=== PATIENT | female | born 1990 | race Caucasian/White ===

== ENCOUNTER 2016-12-01 10:52 | Emergency (ER) | payer OTHER ==
[~2016-12-01] VITALS: Ht 167.6 cm; Wt 59.0 kg
[2016-12-01 12:01] VITALS: BP 129/95
--- NOTE | 2016-12-01 15:09 | NUR ---
PATIENT PRESENTS TO ED WITH C/O INTERMITTENT LOWER ABDOMINAL PAIN X 4 DAYS. . PT STATES SHE 'S NOT BEEN EATING FOR AFEW DAYS;PT ALSO STATES SHE FEELS NAUSEOUS BUT DENIES V/D; SKIN IS PINK/WARM/DRY; AAOX4 WITH EVEN AND STEADY GAIT; LUNGS CLEAR BL; HR EVEN AND REGULAR; PT DENIES ANY FEVER, CP, SOB, OR COUGH AT THIS TIME; PATIENT STATES PAIN OF 7/10 AT THIS TIME;PATIENT POSITIONED FOR COMFORT; HOB ELEVATED; BEDRAILS UP X2; BED DOWN. ER MD MADE AWARE OF PT STATUS.
[2016-12-01] MEDS ORDERED: LORazepam 1 MG TAB PO ONE (15:30)
--- NOTE | 2016-12-01 15:34 | NUR ---
MAGDALENA OLVERA EVALUATING PT.
[2016-12-01 15:47] VITALS: BP 124/92
--- NOTE | 2016-12-01 15:47 | NUR ---
Patient discharged with v/s stable. Written and verbal after care instructions given and explained. Patient alert, oriented and verbalized understanding of instructions. Ambulatory with steady gait. All questions addressed prior to discharge. ID band removed. Patient advised to follow up with PMD. Rx of MAGNESIUM CITRATE AND MAALOX given. Patient educated on indication of medication including possible reaction and side effects. Opportunity to ask questions provided and answered. Addendum: 12/01/16 at 1603 by [facility] Patient discharged with v/s stable. Written and verbal after care instructions given and explained. Patient alert, oriented and verbalized understanding of instructions. Ambulatory with steady gait. All questions addressed prior to discharge. ID band removed. Patient advised to follow up with PMD. Rx of XANAX given. Patient educated on indication of medication including possible reaction and side effects. Opportunity to ask questions provided and answered.
== END 2016-12-01 15:47 | disposition home or self-care (01) ==
LOC: MED 10:52
DX: R10.9 Unspecified abdominal pain (principal); R63.0 Anorexia; R03.0 Elevated blood-pressure reading, without diagnosis of hypertension
CPT/HCPCS: 81002; 81025; 99283

== ENCOUNTER 2018-01-13 19:58 | Emergency (ER) | payer OTHER ==
[~2018-01-13] VITALS: Ht 165.1 cm; Wt 50.6 kg
[2018-01-13 20:00] VITALS: BP 140/98
[2018-01-13] MEDS ORDERED: NACL 0.9% 1,000 ML IV SCH (21:04)
[2018-01-13 21:38] LABS: BASOPHILS # (AUTO) 0.1 K/uL (0.00-0.22); BASOPHILS % (AUTO) 0.7 % (0.0-2.0); EOSINOPHILS # (AUTO) 0.1 K/uL (0-0.4); HEMATOCRIT 43.4 % (36-48); HEMOGLOBIN 14.5 g/dL (12.0-16.0); LYMPHOCYTES # (AUTO) 1.8 K/uL (2.5-16.5); LYMPHOCYTES % (AUTO) 23.8 % (20.5-51.1); MEAN CORPUSCULAR HEMOGLOBIN 30 pg (27-31); MEAN CORPUSCULAR HGB CONC 33 g/dL (33-37); MEAN CORPUSCULAR VOLUME 88.8 fL (80-94); MONOCYTES # (AUTO) 0.4 K/uL (0.8-1.0); NEUTROPHILS # (AUTO) 5.1 K/uL (1.8-7.7); NEUTROPHILS % (AUTO) 68.5 % (42.2-75.2); PLATELET COUNT (AUTO) 252 K/uL (140-450); RED BLOOD CELL COUNT(AUTO) 4.89 MIL/uL (4.20-5.40); RED CELL DISTRIBUTION WIDTH 12.9 % (11.6-13.7); WHITE BLOOD COUNT (AUTO) 7.5 K/uL (4.8-10.8)
[2018-01-13 22:00] LABS: BARBITURATE, URINE NEG. ng/ml (NEG <=200); BENZODIAZEPINE, URINE POS. ng/mL (NEG <=200); CANNABINOID, URINE NEG. ng/mL (NEG <=50); COCAINE, URINE NEG. ng/mL (NEG <=300); OPIATE, URINE NEG. ng/mL (NEG <=2000); PHENCYCLIDINE SCREEN,URINE NEG. ng/mL (NEG <=25)
[2018-01-13 22:11] LABS: APPEARANCE,URINE TURBID (CLEAR); BLOOD, URINE NEGATIVE (NEGATIVE); COLOR,URINE YELLOW (YELLOW); UGLUCOSE NEGATIVE (NEGATIVE)
[2018-01-13 22:12] LABS: BILIRUBIN,URINE NEGATIVE (NEGATIVE); LEUKOCYTE ESTERASE ,URINE NEGATIVE (NEGATIVE); NITRITE, URINE NEGATIVE (NEGATIVE)
[2018-01-13 22:14] LABS: RBC,URINE 0-5 (RARE) /HPF (0-5); WBC,URINE 0-5 (RARE) /HPF (0-5)
[2018-01-13 22:15] LABS: URINE AMORPHOUS URATE 1+ /HPF (None Seen)
[2018-01-13] MEDS ORDERED: KETOROLAC 15 MG/ML VIAL IVP ONE (22:25)
[2018-01-13 22:26] LABS: ANION GAP 15.8 (8-16); CARBON DIOXIDE 27.3 mmol/L (21-32); CHLORIDE 102 mmol/L (98-107); CREATININE 0.6 mg/dL (0.6-1.3); GFR ARICAN-AMERICAN 155 mL/min (>90); GLUCOSE 84 mg/dL (74-106); POTASSIUM 3.1 mmol/L (3.5-5.1); SODIUM SERUM 142 mmol/L (136-145); UREA NITROGEN, BLOOD 9 mg/dL (7-18)
[2018-01-13 22:38] LABS: ALBUMIN 4.3 g/dL (3.4-5.0); AMYLASE 52 U/L (25-115); ASPARTATE AMINOTRANSFERASE 8 U/L (15-37); LIPASE 101 U/L (73-393); THYROID STIMULATING HORMONE 1.75 uIU/mL (0.34-3.74); TOTAL BILIRUBIN 2.1 mg/dL (0.0-1.0)
[2018-01-13 22:39] LABS: ACETAMINOPHEN < 0.5 ug/ml (10-30); SALICYLATE < 2.8 mg/dL (2.8-20.0)
[2018-01-13] MEDS ORDERED: POTASSIUM CHLORIDE 20% 40 MEQ/15 ML UDC PO ONE (23:35)
[2018-01-14] MEDS ORDERED: LORazepam 2 MG/ML VIAL IVP ONE ×2 (00:10→00:15)
[2018-01-14 01:32] VITALS: BP 114/62
== END 2018-01-14 01:32 | disposition home or self-care (01) ==
LOC: MED 19:58
DX: F41.9 Anxiety disorder, unspecified (principal); K58.9 Irritable bowel syndrome, unspecified
CPT/HCPCS: 36415; 80053; 80305; 81001; 81025; 82150; 83690; 83735; 84443; 84484; 84703; 85025; 87086; 93005; 96361; 96374; 96375; 96376; 99285; G0480; G0482; J1885; J2060; J7030

== ENCOUNTER 2018-07-07 19:34 | Emergency (ER) | payer OTHER ==
[~2018-07-07] VITALS: Ht 167.6 cm; Wt 47.6 kg
[2018-07-07 19:39] VITALS: BP 141/80
--- NOTE | 2018-07-07 19:43 | NUR ---
TO LOBBY A/W BED, GILDA CARVER NOTED
--- NOTE | 2018-07-07 20:15 | NUR ---
PT AMBULATED TO ER BED 3 AT THIS TIME
--- NOTE | 2018-07-07 20:18 | NUR ---
28 Y FEMALE C/O NUMBNESS ON HER RT SIDE BODY WITH TINGLING, PAIN ON HER RT SHOULDER STARTED AT 1700 HOUR, WHILE AT WORK , NO TRAUMA NOR INJURY. PAIN 9/10 ACHING. PT STATES THE NUMBNESS AND PAIN RADIATES DOWN ENTIRE RT SIDE. -ROM WITH RT ARM DUE TO PAIN. VSS AT THIS TIME. BED IS DOWN, LOCKED, BED RAIL X 1, ERMD NOTIFIED. PMH-NONE
--- NOTE | 2018-07-07 20:18 | NUR ---
ASSESSMENT COMPLETED BY SINDY ARTEAGA
--- NOTE | 2018-07-07 20:38 | NUR ---
IDA NORWOOD WITH PATIENT
[2018-07-07] MEDS ORDERED: LORazepam 0.5 MG TAB PO ONE (20:55)
[2018-07-07 21:06] LABS: BASOPHILS # (AUTO) 0.1 K/uL (0.00-0.22); BASOPHILS % (AUTO) 0.8 % (0.0-2.0); EOSINOPHILS # (AUTO) 0.1 K/uL (0-0.4); EOSINOPHILS % (AUTO) 1.6 % (0.0-4.0); HEMATOCRIT 39.7 % (36-48); HEMOGLOBIN 13.6 g/dL (12.0-16.0); LYMPHOCYTES # (AUTO) 1.6 K/uL (2.5-16.5); LYMPHOCYTES % (AUTO) 23.8 % (20.5-51.1); MEAN CORPUSCULAR HEMOGLOBIN 30 pg (27-31); MEAN CORPUSCULAR HGB CONC 34 g/dL (33-37); MEAN CORPUSCULAR VOLUME 88.1 fL (80-94); MONOCYTES # (AUTO) 0.4 K/uL (0.8-1.0); MONOCYTES % (AUTO) 5.8 % (1.7-9.3); NEUTROPHILS # (AUTO) 4.7 K/uL (1.8-7.7); PLATELET COUNT (AUTO) 286 K/uL (140-450); RED BLOOD CELL COUNT(AUTO) 4.51 MIL/uL (4.20-5.40); RED CELL DISTRIBUTION WIDTH 13.1 % (11.6-13.7); WHITE BLOOD COUNT (AUTO) 6.8 K/uL (4.8-10.8)
[2018-07-07 21:10] LABS: APPEARANCE,URINE CLEAR (CLEAR); BILIRUBIN,URINE NEGATIVE (NEGATIVE); BLOOD, URINE NEGATIVE (NEGATIVE); COLOR,URINE YELLOW (YELLOW); LEUKOCYTE ESTERASE ,URINE 1+ (NEGATIVE); NITRITE, URINE NEGATIVE (NEGATIVE); UGLUCOSE NEGATIVE (NEGATIVE)
--- NOTE | 2018-07-07 21:16 | NUR ---
REPORT GIVEN TO GINO ARTEAGA
[2018-07-07 21:18] LABS: ANION GAP 12.3 (8-16); CARBON DIOXIDE 27.4 mmol/L (21-32); CREATININE 0.6 mg/dL (0.6-1.3); POTASSIUM 3.7 mmol/L (3.5-5.1)
[2018-07-07 21:19] LABS: RBC,URINE 0-5 /HPF (0-5)
[2018-07-07 21:21] LABS: BARBITURATE, URINE NEG. ng/ml (NEG <=200); BENZODIAZEPINE, URINE NEG. ng/mL (NEG <=200); CANNABINOID, URINE NEG. ng/mL (NEG <=50); COCAINE, URINE NEG. ng/mL (NEG <=300); OPIATE, URINE NEG. ng/mL (NEG <=2000); PHENCYCLIDINE SCREEN,URINE NEG. ng/mL (NEG <=25)
[2018-07-07 21:24] LABS: ALBUMIN 4.1 g/dL (3.4-5.0); TOTAL BILIRUBIN 1.4 mg/dL (0.0-1.0)
--- NOTE | 2018-07-07 22:21 | NUR ---
RAD AT BEDSIDE
--- NOTE | 2018-07-07 23:12 | NUR ---
pt awake, sitting in bed, on phone.
--- NOTE | 2018-07-07 23:28 | NUR ---
Patient discharged with v/s stable. Written and verbal after care instructions given and explained. Patient alert, oriented and verbalized understanding of instructions. Ambulatory with steady gait. All questions addressed prior to discharge. ID band removed. Patient advised to follow up with PMD. Rx of nitrofurantoin given. Patient educated on indication of medication including possible reaction and side effects. Opportunity to ask questions provided and answered.
[2018-07-07 23:30] VITALS: BP 155/75
== END 2018-07-07 23:28 | disposition home or self-care (01) ==
LOC: MED 19:34
DX: R20.2 Paresthesia of skin (principal); N39.0 Urinary tract infection, site not specified; M25.511 Pain in right shoulder; F41.9 Anxiety disorder, unspecified
CPT/HCPCS: 36415; 73020; 80053; 80305; 81001; 81025; 85025; 87086; 99284